=== PATIENT | male | born 1980 | race Caucasian/White ===

== ENCOUNTER 2017-04-09 06:24 | Day surgery (SDC) | payer BC ==
[~2017-04-09 06:24] MED LIST: Buffered Lidocaine 0.9% SYRIN* 5 ML/SYR SYRINGE INTRADERM ONE; Famotidine IV* 10 MG/ML 2 ML (20 mg) IV ONE
[2017-04-09] MEDS ORDERED: Famotidine IV* 10 MG/ML 2 ML (20 mg) ONE (06:26)
[2017-04-09] MEDS ORDERED: Dexamethasone IV* 4 MG/ML 1 ML (4 MG) ONE (06:26)
[2017-04-09] MEDS: Dexamethasone IV* 4 MG/ML 1 ML (4 MG) IV SLOW PU ONE (07:00)
[2017-04-09] MEDS ORDERED: Tetracaine 0.5% OPTH.SOL 15ML* BTL ONE (07:05)
[2017-04-09] MEDS ORDERED: BSS OPTH.SOL* BTL ONE (07:05)
[2017-04-09] MEDS ORDERED: Neomycin/Polymy/Dex OPHTH.OIN* 3.5 GM ONE (07:05)
[2017-04-09] MEDS ORDERED: Phenylephrine 2.5% OPTH.SOL* 2 ML BTL ONE (07:05)
[2017-04-09] MEDS ORDERED: Propofol* 10 MG/ML 20 ML BTL IV PUSH ONE ×2 (07:21→07:35)
[2017-04-09] MEDS ORDERED: Midazolam* 1 MG/ML 2 ML VIAL (2 MG) ONE (07:21)
[2017-04-09] MEDS ORDERED: fentaNYL* 50 MCG/ML 2 ML VIAL (100 MCG VIAL) ONE ×2 (07:21→07:55)
[2017-04-09] MEDS ORDERED: Lidocaine 2% PF * 5 ML VIAL ONE (07:21)
[2017-04-09] MEDS ORDERED: Ondansetron INJ* 2 MG/ML VIAL ONE (08:14)
[2017-04-09] MEDS ORDERED: HYDROcodone/ACETAMIN 5-325 MG* 1 TAB PO PRN (08:18)
[2017-04-09] MEDS ORDERED: Naloxone* 0.4 MG/ML 1 ML VIAL IV PRN (08:18)
[2017-04-09] MEDS ORDERED: oxyCODONE/Acetamin 5/325 MG* TAB PO PRN (08:18)
[2017-04-09] MEDS ORDERED: PROCHLORPERAZINE INJ 5 MG/ML 2 ML VIAL IV PRN (08:18)
[2017-04-09] MEDS ORDERED: fentaNYL* 50 MCG/ML 2 ML VIAL (100 MCG VIAL) IV PRN (08:18)
[2017-04-09] MEDS ORDERED: Ketorolac INJ* 30 MG/ML 1 ML VIAL ONE (08:20)
[2017-04-09 09:20] VITALS: BP 125/75
--- NOTE | 2017-04-09 23:13 | OP ---
DATE OF OPERATION: 04/09/17 - [facility] DATE OF : 84 SURGEON: Mynor Hathaway MD CYBER SECURITY SPECIALIST: None. ANESTHESIOLOGIST: Gabbi Gorman MD ANESTHESIA: General. 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 OPERATIVE PROCEDURE: Resect each lateral rectus muscle, 8.0 mm. COMPLICATIONS: None. BLOOD LOSS: Minimal. DESCRIPTION OF PROCEDURE: The patient was brought to the operating room and general anesthesia without any complications. A drop of Tetracaine and a drop of phenylephrine were placed in each eye. The patient was prepped and draped in the usual sterile fashion for ophthalmic surgery and attention was directed to the left eye where a speculum was placed. Forced ductions were performed and found to be normal. Scarring of the nasal conjunctiva was evident from previous eye muscle surgery when he was an infant. The eye was grasped near the limbus in the inferotemporal quadrant and brought to superomedial gaze. An inferotemporal fornix incision was created with a Rachel scissor. Tenon's capsule was violated. The lateral rectus muscle was isolated on a Shai muscle hook. The conjunctiva was reflected over the surface of the muscle. The check ligament was opened. The muscle was cleaned with sharp and blunt dissection to approximately 10 mm posterior to its insertion. Another Shai muscle hook was placed under the muscle and the small hooks removed. A tish was made with a calliper 8.0 mm posterior to the original insertion onto the surface of the muscle. A double-arm 6-0 Vicryl suture was woven through the muscle at this location and locked at either end. A Shai muscle clamp was placed across the muscle between the sutures and the insertion. The muscle hooks were removed. The muscle was disinserted from the globe with Rachel scissors. Locking forceps were used to grasp the original insertion site. The sutures were then placed to the original insertion site and then back up through the underside of the muscle at the point that the sutures were within the muscle. The sutures were then pulled securely and the [place] muscle clamp was adjusted such that the sutures were over the original insertion site. The sutures were then tied securely over the muscle and the distal muscle stump was resected. There was no active bleeding. The muscle was found to be in good position. The sutures were trimmed. The locking forceps were removed. The conjunctiva was closed with interrupted 6-0 gut sutures. A speculum was removed and placed in the contralateral eye. Forced ductions were again performed and found to be normal, and nasal scar from previous surgery was noted. The exact same procedure was performed in this eye including a resection of the lateral rectus muscle 8 mm. At the end of the case, the eyes appeared straight and there was no active bleeding. All instruments were removed from the eye and topical tetracaine followed by Maxitrol ointment was placed from the surface of the eye. The patient was awakened uneventfully and sent to the recovery room in stable condition with postop instructions and followup appointment given. [id number]/[facility] #: [id number] RICH
== END 2017-04-09 09:43 | disposition home or self-care (01) ==
LOC: OREAST 06:24
PROVIDERS: ATTEND Ophthalmology
DX: H50.05 Alternating esotropia (principal); K76.0 Fatty (change of) liver, not elsewhere classified
CPT/HCPCS: A9270-GY; J1100; J1885; J2250; J2405; J2704; J3010